=== PATIENT | female | born 1990 | race Caucasian/White ===

== ENCOUNTER 2016-12-30 04:11 | Emergency (ER) | payer MEDICAID ==
[~2016-12-30] VITALS: Ht 170.2 cm; Wt 94.1 kg
[~2016-12-30 04:11] MED LIST: CIPRO 500MG TA500 MG PO; MOTRIN 600MG.600 MG PO; SEPTRA DS 800 M1 TAB PO
--- OUTSIDE RECORDS SUMMARY | 2016-12-30 04:31 | External Medical Summary Rpt ---
Author Author [facility] Organization [facility] Address Unknown Phone Unavailable Care Team Providers Care Stack Supervisor Name Role Phone NO, (REF) PCP Unavailable Encounter [facility] [id number] Date(s): 03/10/16 - 03/10/16 [facility] [address] [place] [address]- Discharge Diagnosis: Abscess Discharge Disposition: OP Self Care or Home Attending Physician: PERICO CHAIDEZ MD Admitting Physician: PERICO CHAIDEZ MD Referring Physician: PERICO CHAIDEZ MD Reason for Visit CUTANEOUS ABSCESS, UNSPECIFIED Vital Signs Most recent 1 2 to oldest [Reference Range]: Temperature Oral Source (03/10/16 4:54 PM) Temperature Fahrenheit Mode (03/10/16 4:54 PM) Temperature, 97.9 Deg F Fahrenheit (03/10/16 4:54 PM) [96.8-99.7 Deg F] Clinical 36.6 Deg C Temperature, (03/10/16 4:54 PM) C Peripheral 74 bpm 85 bpm Pulse Rate (03/10/16 5:43 PM) (03/10/16 4:54 PM) [60-100 bpm] Respiratory 16 Breaths/Min 16 Breaths/Min Rate [14-20 (03/10/16 5:43 PM) (03/10/16 4:54 PM) Breaths/Min] Blood 158/68 mmHg 172/84 mmHg Pressure *HI* *HI* [90-140/60-9 (03/10/16 5:43 PM) (03/10/16 4:54 PM) 0 mmHg] Oxygen 98 % 97 % Saturation (03/10/16 5:43 PM) (03/10/16 4:54 PM) [94-100 %] Oxygen Room air Therapy Mode (03/10/16 4:54 PM) Problem List Condition Effective Status Health Informant Dates Status Hepatitis Active C(Confirmed) Allergies, Adverse Reactions, Alerts Substance Reaction Severity Status penicillins Active Medications acetaminophen-codeine (Tylenol with Codeine #3 oral tablet)1 Tab, Oral, Every 6 Hours, 3 Day(s), As Needed, for pain, Refills: 0Ordering provider: NICKY GIBBONS APR cephalexin (Keflex 500 mg oral capsule)1 Cap, Oral, Four Times A Day, 7 Day(s), Refills: 0Ordering provider: NICKY GIBBONS APR FLUoxetine (PROzac) Oral, Every Day, Refills: 0 sulfamethoxazole-trimethoprim (Bactrim DS 800 mg-160 mg oral tablet)2 Tab, Oral, Two Times A Day, 7 Day(s), Refills: 0Ordering provider: NICKY GIBBONS APR Results Microbiology Reports TEST: Wound Culture STATUS: Order in Progress BODY SITE: Vaginal/Rectal SOURCE: Wound COLLECTED DATE/TIME: 03/10/16 5:23 PMPRELIMINARY REPORTNo growthSTAIN REPORTModerate Gram Positive Cocci Rare Gram Positive Rods Rare White Blood Cells Rare Red Blood Cells Immunizations No data available for this section Procedures No data available for this section Social History Social History Response Type Smoking Status Current every day smoker; Smoking Frequency Within Last 30 Days Five or more cigarettes per day; Years of Tobacco Use 10; Packs/Tins Daily 0.5 Assessment and Plan No data available for this section Hospital Discharge Instructions Patient EducationAbscess Incision and Drainage
--- OUTSIDE RECORDS SUMMARY | 2016-12-30 04:31 | External Medical Summary Rpt ---
Author Author [facility] Organization [facility] Address Unknown Phone Unavailable Care Team Providers Care Call Center Supervisor Name Role Phone NO, (REF) PCP Unavailable Encounter [facility] [id number] Date(s): 03/10/16 - 03/10/16 [facility] [address] [place] [address]- Discharge Diagnosis: Abscess Discharge Disposition: OP Self [...]
--- OUTSIDE RECORDS SUMMARY | 2016-12-30 04:32 | External Medical Summary Rpt | CCD ---
Author Author [facility] Organization [facility] Address Unknown Phone Unavailable Purpose Continuity of Care Document - through 2016
--- OUTSIDE RECORDS SUMMARY | 2016-12-30 04:32 | External Medical Summary Rpt | CCD ---
Author Author , MESFIN TOURE Address Unknown Phone [email or web address] Immunization Name Date Rout CVX Reac Dose Comm Prov Is Faci e tion ent ider Refu lity Give sed n HPV4 01-3 62 999 Hist H205 No H205 0-20 oric (Gar 08 al dasi Info l) rmat ion - Sour ce Unsp ecif ied MCV4 01-3 147 999 Hist H205 No H205 UF 0-20 oric 08 al Info rmat ion - Sour ce Unsp ecif ied
--- OUTSIDE RECORDS SUMMARY | 2016-12-30 04:32 | External Medical Summary Rpt | CCD ---
Author Author , MESFIN TOURE Address Unknown Phone [email or web address] Immunization Name Date Rout CVX Reac Dose [...]
--- OUTSIDE RECORDS SUMMARY | 2016-12-30 04:32 | External Medical Summary Rpt ---
Author Author [employer] Billings, [employer] Organization [employer] Address Unknown Phone Unavailable
--- OUTSIDE RECORDS SUMMARY | 2016-12-30 04:32 | External Medical Summary Rpt | CCD ---
Author Author , [employer] Organization [employer] Address Unknown Phone [email or web address] Purpose Continuity of Care Document - 06-17-2016 through 2016 Results Labs Lab Lab Date Result Refere Interp Status Commen Order Detail nces retati t Range on Prolactin SerPl 3rd IS-nc (06-17-2016 15:21) Prolact 16.5 4.4-23. complet in 017 ng/mL 3 ed SerPl 15:21 3rd IS-nc LH SerPl-aCnc (06-17-2016 15:21) LH 8.3 complet SerPl-a 017 mIU/mL ed Cnc 15:21 Comment: -- LH Female Reference Ranges: normal Comment: range normal range normal range normal range normal range normal range normal Comment: range normal range normal range normal range reference range comments normal Comment: range normal range normal range normal range Comment: -- * Puberty onset (transition from Comment: Kennedy stage I to Kennedy stage II) occurs for girls at a median age of 10.5 Comment: (+/-) years. There is evidence that it may occur up to 1 year earlier in obese Comment: girls and in girls. Progression through Kennedy stages is Comment: variable. Kennedy stage V (adult) should be reached by age 18. [Reference: [place] Comment: Laboratory] -- Hgb A1c MFr Bld (06-17-2016 15:21) Hgb A1c 5.4 % 4.7-6.0 complet MFr 017 ed Bld 15:21 Comment: (NOTE) Comment: Glycohemoglobin Reference Range, 0 years and up: 4.7 - 6.0% Comment: . Comment: Hemoglobin A1c values of 5.7 - 6.4% indicate an increased risk Comment: for developing diabetes mellitus (prediabetes). Comment: Hemoglobin A1c values greater than or equal to 6.5% are Comment: diagnostic of diabetes mellitus. Comment: . Comment: HbA1c assay performed by an ion-exchange chromatography Comment: method that is certified traceable to the DCCT. Comment: Insulin SerPl-aCnc (06-17-2016 15:21) Insulin 32.9 3.0-16. complet 017 uU/mL 0 ed SerPl-a 15:21 Cnc TSH SerPl DL<=0.005 mIU/L-aCnc (06-17-2016 15:21) TSH 6.15 0.4-4.2 complet SerPl 017 uIU/mL ed DL<=0.0 15:21 05 mIU/L-a Cnc HGC Intact+B SerPl-aCnc (06-17-2016 15:21) HGC 2 < 1 <5 complet Intact+ 017 mIU/mL ed B 15:21 SerPl-a Cnc T4 Free SerPl-mCnc (06-17-2016 15:21) T4 Free 1.4 0.8-1.7 complet 017 ng/dL ed SerPl-m 15:21 Cnc
--- OUTSIDE RECORDS SUMMARY | 2016-12-30 04:32 | External Medical Summary Rpt | CCD ---
Author Author , [employer] Organization [employer] Address Unknown Phone [email or web address] Purpose Continuity of Care Document - 06-17-2016 [...] should be reached by age 18. [Reference: [place] Comment: Laboratory] -- Hgb A1c MFr Bld [...]
[2016-12-30 04:52] LABS: URINE BILIRUBIN - DIPSTICK NEGATIVE (NEG); URINE BLOOD NEGATIVE (NEG)
[2016-12-30 04:53] LABS: HEMOGLOBIN 14.9 g/dL (12.2-16.2); LYMPH # 1.6 K/mm3 (0.7-4.5)
--- NOTE | 2016-12-30 05:50 | Emergency Room Report ---
History of Present Illness Time Seen by 0430 Presenting Problem in Triage Pt arrived:Walked Presenting Problem:c/o COLD SYNPTOMS FOR 3 WEEKS THEN C/O BILATERAL LUNG PAIN WITH RESP. ALSO C/O PRODUCTIVE COUGH WITH GREEN SPUTUM, FEVER, NAUSEA /VOMITING AND SORE THROAT Onset of symptoms date/time:/ or onset unknown for:MEDICAL HX UNKNOWN Treatment Prior to Arrival: BIOMETRICS HEAD Provided by: Sepsis Risk Assessment: Temp: 99.4 B/P: 147/89 MAP: 108 Pulse: 80 Resp: 20 Recent fever? Y Clinical Suspician of Infection? N Mental Status: 1 - Regular (Normal Baseline) Sepsis Risk:Low Sepsis Risk Have you (or family members/close friends) recently traveled outside the [place]? N If Yes, where/when: Have you had exposure to infectious disease within the past month? N TB? Other? Specify: Source patient, RN notes reviewed, RN/MD Exam Limitations no limitations Comment This is a 26-year-old female presenting to the emergency room with nonproductive cough for the past 3 weeks. When she woke up this morning she also had a additional episodes of nausea and vomiting. Her last menstrual period was approximately one month ago. ALLERGIES Coded Allergies: Penicillins (12/29/14) History Medical History General CAD? No Angina: No [place]: No Hypertension? No Hyperlipidemia? No CHF? No DVT? No PE? No COPD? No Asthma? No Anemia? No GERD? No Gastric ulcers? No GI Bleed? No Hernia? No Thyroid Problems? No Hypothyroidism? No CVA? No Seizures? No Diabetes? No Insulin Dependent: No Insulin Pump: No Home FSBS? No Renal Insuffiency? No End Stage Renal Disease? No UTI? No Stones? No BPH? No GB Disease: No Nephritic Syndrome? No Asplenia? No Hepatitis? Yes Sickle Cell Disease? No Arthritis? No Migraines? No Cataracts? No Glaucoma? No MRSA? No HIV? No TB? No Anxiety? No Depression? No Cancer? No Site: HEP C More? 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 Month Ago Social History Smoking Hx Smoker: Current Every Day Smoker Tobacco: Yes Type Cigarettes Packs/day < 1 Pack Alcohol Alcohol: No Review of Systems All Other Systems Reviewed and Negative Respiratory cough, shortness of breath Gastrointestinal see HPI, denies abdominal pain, denies constipation, denies diarrhea, nausea, vomiting Physical Exam Vital Signs Vital Signs Date Time Temp Pulse Resp B/P Pulse O2 O2 Flow FiO2 Ox Delivery Rate 12/30 0608 99.4 80 20 147/89 97 12/30 0415 99.4 80 20 147 97 General Appearance normal appearance, WD/WN, no apparent distress Ear, Nose, Throat hearing grossly normal, normal ENT inspection, pharyngeal erythema Neck normal inspection, non-tender, supple, full range of motion Respiratory Status Yes: trachea midline, chest symmetrical, non tender chest. No: respiratory distress. Lung Sounds bilateral: normal breath sounds, lungs clear. Cardiovascular normal exam, regular rate/rhythm, no peripheral edema, no gallop, no JVD, no murmur, no rub, normal peripheral pulses Gastrointestinal normal bowel sounds, normal exam, non tender, soft, no organomegaly Extremities non-tender, normal range of motion, normal inspection Neurologic alert, financial legal assistant II-XII nml as tested, normal exam, oriented x 3 Mental status normal mood/affect Skin intact, normal color, warm/dry Medical Decision Making LABS/Meds/Orders Pt receiving controlled substance in ED? No Comment 06:00am-patient reevaluated, she appears in no acute distress, medically stable. She will be discharged home with a Z-Macho and Deepthian. Patient instructed to follow-up with PCP if not better within a few days, per discharge instructions. Results/Orders Laboratory Tests 12/30/16 2775: Sodium 138, Potassium 3.8, Chloride 101, Carbon Dioxide 26, BUN 7, Creatinine 0.8, Estimated Creat Clear 161, Estimated GFR (MDRD) 88, Glucose 111 H, Calcium 9.3, Total Bilirubin 0.6, AST 25, ALT 31, Alkaline Phosphatase 65, Total Protein 8.8 H, Albumin 4.1, Globulin 4.7 H, Albumin/Globulin Ratio 0.9 L, WBC 7.6, RBC 5.07, Hgb 14.9, Hct 44.6, MCV 87.9, RDW 12.9, Plt Count 189, MPV 8.4, Gran % 69.4, Gran # 5.2, Lymphocytes % 21.0, Monocytes % 7.4, Eosinophils % 1.7, Basophils % 0.4, Lymphocytes # 1.6, Monocytes # 0.6, Eosinophils # 0.1, Basophils # 0.0, PUBS MCHC 33.5, MCH 29.4, Urine Color YELLOW, Urine Appearance CLEAR, Urine pH 7.0, Ur Specific [place] 1.015, Urine Protein TRACE H, Urine Ketones NEGATIVE, Urine Blood NEGATIVE, Urine Nitrate NEGATIVE, Urine Bilirubin NEGATIVE, Urine Urobilinogen 0.2, Ur Leukocyte Esterase TRACE H, Urine WBC 3-5, Ur Squamous Epith Cells 10-20, Urine Bacteria 1+, Urine Glucose NEGATIVE Current Medication Orders Sig/Zoey Start time Last Medication Dose Route Stop Time Status Admin Azithromycin 500 MG ONCE ONE 12/30 599 DC 12/30 PO 12/30 Ondansetron HCl 4 MG ONCE ONE 12/30 599 DC 12/30 IV 12/30 Azithromycin 0 .STK-MED ONE 12/30 558 DC PO Ondansetron HCl 0 .STK-MED ONE 12/30 558 DC .ROUTE Sodium Chloride 10 ML PRN PRN 12/30 429 AC IV 12/31 425 Orders Procedure Date/time Status CHEST(2 VIEWS-NOT PORTABLE) 12/30 425 Active IV SALINE LOCK 12/30 425 Active URINALYSIS/COMPLETE 12/30 425 Complete URINE 12/30 425 Complete CBC WITH AUTO DIFF 12/30 425 Complete CHEM 12 PROFILE 12/30 425 Complete XRAY/CT/US XRAY/CT/US XRAY chest XR interpretation by reviewed by me Xray Results no infiltrates, normal heart size, normal lung inflation reinaldo Departure Departure Time of Disposition 0555 Disposition DC Home or Self Care(routine) Clinical Impression Primary Impression: Acute bronchitis Qualifiers: Bronchitis organism: unspecified organism Qualified Code: J20.9 - Acute bronchitis, unspecified Secondary Impressions: Gastroenteritis Condition STABLE Referrals [facility] (Family) Patient Instructions DI for Acute Bronchitis, DI for Viral Gastroenteritis -- Adult Additional Instructions Please take the medications prescribed as instructed, follow-up with your family physician if not better in 4-5 days. Discharge Counseling Counseled pt/family regarding diagnosis, test results, medications/RX, home care, follow up needs Comment Please take the medications prescribed as instructed, follow-up with your family physician if not better in 4-5 days. Prescriptions Current Visit Scripts Azithromycin (Zithromax) 250 MG PO DAILY #4 TAB USE DIRECTED. Ondansetron (Zofran 4MG Odt) 4 MG PO Q6HP PRN NAUSEA AND VOMITING #20 ODT ED Critical Care Critical Care No at 0612
[2016-12-30] MEDS ORDERED: ZITHROMAX Z-PA250 M2 PO (05:58)
[2016-12-30] MEDS ORDERED: ZOFRAN ODT4 MG PO (05:58)
[2016-12-30 06:08] VITALS: BP 147/89
--- NOTE | 2016-12-30 13:40 | RADIOLOGY REPORT PS360 ---
CHEST(2 VIEWS-NOT PORTABLE) HISTORY: C/O PRODUCTIVE COUGH Patient Age: 26 years: Female Ordering Physician: Estevan Vidal MD TECHNIQUE: PA and lateral chest COMPARISON : None available FINDINGS Coarsening of central markings likely does reflect central airway inflammatory changes as seen with bronchitis features. Only question mild perihilar infiltrate. No peripheral or lobar pneumonia. Mild hyperexpansion. Cannot exclude asthma. Heart ryan and mediastinal structures unremarkable. Spleen upper normal size. IMPRESSION: Coarsening of central markings likely reflecting central airway inflammatory changes/bronchitis. No focal nor lobar pneumonia evident
== END 2016-12-30 06:10 | disposition home or self-care (01) ==
LOC: ER 04:11
PROVIDERS: Emergency Medicine
DX: J20.9 Acute bronchitis, unspecified (principal); A08.4 Viral intestinal infection, unspecified; F17.210 Nicotine dependence, cigarettes, uncomplicated; Z88.0 Allergy status to penicillin
CPT/HCPCS: J2405